=== PATIENT | female | born 1990 | race Caucasian/White ===

== ENCOUNTER 2017-01-16 14:19 | Emergency (ER) | payer OTHER ==
[~2017-01-16] VITALS: Ht 162.6 cm; Wt 83.0 kg
[2017-01-16 14:39] VITALS: BP 147/96
--- NOTE | 2017-01-16 16:54 | NUR ---
DR. PERALES AT BEDSIDE
--- NOTE | 2017-01-16 17:00 | NUR ---
RELAYED TO DR. PERALES RESULT OF URINE DIPTSTICK AND PREG.
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
--- NOTE | 2017-01-16 17:38 | NUR ---
TALKING TO FAMILY IN HER PHONE AT THIS TIME.
[2017-01-16 19:06] VITALS: BP 134/98
--- NOTE | 2017-01-16 19:07 | NUR ---
Patient discharged with v/s stable. Written and verbal after care instructions given and explained. Patient alert, oriented and verbalized understanding of instructions. Ambulatory with steady gait. All questions addressed prior to discharge. ID band removed. Patient advised to follow up with PMD. Rx of KEFLEX AND PYRIDIUM given. Patient educated on indication of medication including possible reaction and side effects. Opportunity to ask questions provided and answered.ENCOURAGED FLUID INTAKE AND PT AGREED WITH IT.
== END 2017-01-16 19:07 | disposition home or self-care (01) ==
LOC: MED 14:19
DX: N30.90 Cystitis, unspecified without hematuria (principal); R03.0 Elevated blood-pressure reading, without diagnosis of hypertension